=== PATIENT | male | born 1955 | race Caucasian/White ===

== ENCOUNTER 2019-04-13 07:52 | Day surgery (SDC) | payer MEDICAID, MEDICARE ==
[2019-04-13] MEDS ORDERED: PROPOFOL 20 ML (10:30)
[2019-04-13] MEDS ORDERED: LIDOCAINE 100 MG SYRINGE (10:30)
== END 2019-04-13 11:43 | disposition home or self-care (01) ==
LOC: GIL 07:52
DX: Z12.11 Encounter for screening for malignant neoplasm of colon (principal); K64.8 Other hemorrhoids; J45.909 Unspecified asthma, uncomplicated
CPT/HCPCS: 45378